=== PATIENT | female | born 1995 | race Caucasian/White ===

== ENCOUNTER → 2018-02-14 | Outpatient (CLI) | payer OTHER ==
[~2018-02-14] MED LIST: "\\\"ANTIBIOTIC\\\""; Augmentin 875-1 EACH PO; CEFD300 PO; CIPR500 PO; CODACEE120 PO; FLUT.05NI; HYDACE5 PO; MAGCIT300 PO; Naprosyn500 MG PO; ONDA4ODT MM; PROM25 PO
== END | disposition home or self-care (01) ==
LOC: LAB SHORT 10:43 → LAB EV 10:43
DX: N39.0 Urinary tract infection, site not specified (principal)
CPT/HCPCS: 87086

== ENCOUNTER → 2018-12-25 | Outpatient (CLI) | payer OTHER ==
[2018-12-29 15:06] LABS: HPV 16 Negative (Negative); HPV 18 Negative (Negative); HPV OTHER HR TYPES Negative (Negative)
== END | disposition home or self-care (01) ==
LOC: LAB 15:38 → LAB SHORT 15:38
PROVIDERS: Obstetrics & Gynecology
DX: Z01.419 Encounter for gynecological examination (general) (routine) without abnormal findings (principal)
CPT/HCPCS: 87624; G0123

== ENCOUNTER → 2019-01-20 | Outpatient (CLI) | payer OTHER ==
[2019-01-21 10:32] LABS: Candida species (DNA Probe) Negative (NEGATIVE); G. vaginalis (DNA Probe) Negative (NEGATIVE); T. vaginalis (DNA Probe) Negative (NEGATIVE)
== END | disposition home or self-care (01) ==
LOC: LAB 16:44 → LAB SHORT 16:44
PROVIDERS: Obstetrics & Gynecology
DX: A59.01 Trichomonal vulvovaginitis (principal)
CPT/HCPCS: 87480; 87510; 87660

== ENCOUNTER → 2022-07-16 | Outpatient (CLI) | payer OTHER ==
[~2022-07-16] MED LIST changes: +ALMACONE SUSPE355 ML PO; +FAMO20 PO; +LEVFLO500 PO; +SERT100 PO; +TRAZ50 PO
== END | disposition home or self-care (01) ==
LOC: LAB SHORT 17:03 → LAB 17:03
PROVIDERS: Obstetrics & Gynecology
DX: Z12.4 Encounter for screening for malignant neoplasm of cervix (principal)
CPT/HCPCS: G0123

== ENCOUNTER 2023-05-01 07:08 | Inpatient (IN) | payer OTHER ==
[2023-05-01] VITALS (39 sets, daily range): BP systolic 82–162; BP diastolic 36–90
[~2023-05-01] VITALS: Ht 170.2 cm; Wt 103.0 kg
[2023-05-01 07:57] LABS: BASOPHILS ABSOLUTE AUTO 0.04 K/mm3 (0.00-0.23); BASOPHILS PERCENT AUTO 0 % (0-2); EOSINOPHILS ABSOLUTE AUTO 0.16 K/mm3 (0.00-0.68); EOSINOPHILS PERCENT AUTO 1 % (0-6); Hematocrit 36.9 % (33.0-51.0); Hemoglobin 11.9 g/dL (11.5-16.0); IMMATURE GRAN ABSOLUTE AUTO 0.14 K/mm3 (0.00-0.10); IMMATURE GRAN PERCENT AUTO 1 % (0-1); LYMPHOCYTES ABSOLUTE AUTO 2.31 K/mm3 (0.84-5.20); LYMPHOCYTES PERCENT AUTO 18 % (21-46); MONOCYTES ABSOLUTE AUTO 0.64 K/mm3 (0.16-1.47); MONOCYTES PERCENT AUTO 5 % (4-13); Mean Corpuscular HGB 25.1 pg (26.0-34.0); Mean Corpuscular HGB Conc 32.2 g/dL (31.5-36.5); Mean Corpuscular Volume 78 fL (80-100); Mean Platelet Volume 10.8 fL (9.1-12.4); NEUTROPHILS ABSOLUTE AUTO 9.44 K/mm3 (1.96-9.15); NEUTROPHILS PERCENT AUTO 74 % (41-73); Platelet Count 259 K/mm3 (150-400); RDW Coefficient Variation 17.3 % (11.7-14.2); RDW Standard Deviation 48.7 fL (35.1-46.3); Red Blood Cell Count 4.74 M/mm3 (3.80-5.20); White Blood Cell Count 12.73 K/mm3 (4.00-11.30)
[2023-05-02] VITALS (13 sets, daily range): BP systolic 117–140; BP diastolic 57–83
[2023-05-02 06:28] LABS: BASOPHILS ABSOLUTE AUTO 0.03 K/mm3 (0.00-0.23); BASOPHILS PERCENT AUTO 0 % (0-2); EOSINOPHILS ABSOLUTE AUTO 0.08 K/mm3 (0.00-0.68); EOSINOPHILS PERCENT AUTO 1 % (0-6); Hematocrit 35.4 % (33.0-51.0); Hemoglobin 11.4 g/dL (11.5-16.0); IMMATURE GRAN ABSOLUTE AUTO 0.11 K/mm3 (0.00-0.10); IMMATURE GRAN PERCENT AUTO 1 % (0-1); LYMPHOCYTES ABSOLUTE AUTO 2.04 K/mm3 (0.84-5.20); LYMPHOCYTES PERCENT AUTO 12 % (21-46); MONOCYTES ABSOLUTE AUTO 0.88 K/mm3 (0.16-1.47); MONOCYTES PERCENT AUTO 5 % (4-13); Mean Corpuscular HGB 25.1 pg (26.0-34.0); Mean Corpuscular HGB Conc 32.2 g/dL (31.5-36.5); Mean Corpuscular Volume 78 fL (80-100); Mean Platelet Volume 10.7 fL (9.1-12.4); NEUTROPHILS ABSOLUTE AUTO 14.45 K/mm3 (1.96-9.15); NEUTROPHILS PERCENT AUTO 82 % (41-73); Platelet Count 250 K/mm3 (150-400); RDW Coefficient Variation 17.4 % (11.7-14.2); Red Blood Cell Count 4.55 M/mm3 (3.80-5.20); White Blood Cell Count 17.59 K/mm3 (4.00-11.30)
--- NOTE | 2023-05-02 19:18 | NUR ---
DISCHARGE INSTRUCTIONS, WRITTEN AND VERBAL, GIVEN TO PT AND S.O. ANSWERED ALL QUESTIONS AND CONCERNS.
== END 2023-05-02 23:19 | disposition home or self-care (01) | DRG 807 ==
LOC: OBS 07:08 → BC 07:09 → OBS 07:18 → BC 07:19
PROVIDERS: ADMIT Obstetrics & Gynecology
PROC: 10E0XZZ Delivery of Products of Conception, External Approach (ICD-10-PCS; principal; 2023-05-01)
PROC: 0HQ9XZZ Repair Perineum Skin, External Approach (ICD-10-PCS; 2023-05-01)
PROC: 00HU33Z Insertion of Infusion Device into Spinal Canal, Percutaneous Approach (ICD-10-PCS; 2023-05-01)
PROC: 3E0R3BZ Introduction of Anesthetic Agent into Spinal Canal, Percutaneous Approach (ICD-10-PCS; 2023-05-01)
DX: O99.344 Other mental disorders complicating childbirth (principal); Z37.0 Single live birth; F41.9 Anxiety disorder, unspecified; F32.A Depression, unspecified; O70.0 First degree perineal laceration during delivery; Z3A.39 39 weeks gestation of pregnancy; Z87.891 Personal history of nicotine dependence; Z98.890 Other specified postprocedural states; Z79.899 Other long term (current) drug therapy; Z67.40 Type O blood, Rh positive
CPT/HCPCS: 36415; 51702; 85025; 86850; 86900; 86901; 86923; A9270; J1885; J2210; J2405; J2590; J3010; J7120

== ENCOUNTER 2023-05-17 07:50 | Emergency (ER) | payer OTHER ==
[~2023-05-17] VITALS: Ht 170.2 cm; Wt 94.3 kg
[2023-05-17] MEDS ORDERED: HYDR1TAB94 PO (08:59)
[2023-05-17 09:08] VITALS: BP 133/86
== END 2023-05-17 09:10 | disposition home or self-care (01) ==
LOC: ER 07:50
DX: R07.89 Other chest pain (principal); F17.210 Nicotine dependence, cigarettes, uncomplicated
CPT/HCPCS: 71046; 99283-25; A9270

== ENCOUNTER 2023-07-22 03:54 | Emergency (ER) | payer OTHER ==
[~2023-07-22] VITALS: Ht 162.6 cm; Wt 72.6 kg
[~2023-07-22 03:54] MED LIST changes: +HYDR1TAB94 PO
[2023-07-22 04:29] LABS: BASOPHILS ABSOLUTE AUTO 0.04 K/mm3 (0.00-0.23); BASOPHILS PERCENT AUTO 0 % (0-2); EOSINOPHILS ABSOLUTE AUTO 0.29 K/mm3 (0.00-0.68); EOSINOPHILS PERCENT AUTO 3 % (0-6); Hematocrit 41.3 % (33.0-51.0); Hemoglobin 13.4 g/dL (11.5-16.0); IMMATURE GRAN ABSOLUTE AUTO 0.05 K/mm3 (0.00-0.10); IMMATURE GRAN PERCENT AUTO 1 % (0-1); LYMPHOCYTES ABSOLUTE AUTO 3.75 K/mm3 (0.84-5.20); LYMPHOCYTES PERCENT AUTO 35 % (21-46); MONOCYTES ABSOLUTE AUTO 0.53 K/mm3 (0.16-1.47); MONOCYTES PERCENT AUTO 5 % (4-13); Mean Corpuscular HGB 26.7 pg (26.0-34.0); Mean Corpuscular HGB Conc 32.4 g/dL (31.5-36.5); Mean Corpuscular Volume 82 fL (80-100); Mean Platelet Volume 10.2 fL (9.1-12.4); NEUTROPHILS ABSOLUTE AUTO 5.97 K/mm3 (1.96-9.15); NEUTROPHILS PERCENT AUTO 56 % (41-73); Platelet Count 317 K/mm3 (150-400); RDW Coefficient Variation 15.3 % (11.7-14.2); Red Blood Cell Count 5.02 M/mm3 (3.80-5.20); White Blood Cell Count 10.63 K/mm3 (4.00-11.30)
[2023-07-22 04:38] LABS: Source, Urine Clean Catch
[2023-07-22 04:42] LABS: Bilirubin, Urine Neg (Neg); Blood, Urine 5+ (Neg); Glucose Qualitative, Urine Neg (Neg); Ketones, Urine 1+ (Neg); Leukocyte Esterase, Urine 1+ (Neg); Nitrite, Urine Neg (Neg); Protein, Urine 2+ (Neg); Specific Gravity, Urine 1.025 (1.003-1.022); Urobilinogen, Urine NORM (Normal)
[2023-07-22 04:48] LABS: Albumin, Blood 3.6 g/dL (3.4-5.0); Albumin/Globulin Ratio 0.9 (0.8-1.8); Bilirubin, Total 0.2 mg/dL (0.1-1.0); Bun/Creatinine Ratio 15.6 (12.0-20.0); Calcium, Blood 8.6 mg/dL (8.5-10.1); Creatinine, Blood 0.64 mg/dL (0.40-1.00); Globulin, Blood 3.8 g/dL (2.2-4.0); Potassium, Blood 3.6 mmol/L (3.5-5.5); Total Protein, Blood 7.4 g/dL (6.4-8.2)
[2023-07-22 04:49] LABS: Appearance, Urine Hazy (Clear); Bacteria Mod /hpf; Color, Urine Yellow (P-Yellow); Mucus Mod (0-Heavy); Red Blood Cells, Urine 0-2 /hpf (0-2); Squamous Epithelial Cells Few /hpf (Few)
[2023-07-22 04:50] LABS: Amorphous Mod (0-Heavy)
[2023-07-22] MEDS ORDERED: ONDA4ODT MM (06:21)
[2023-07-22 06:30] VITALS: BP 130/67
== END 2023-07-22 06:49 | disposition home or self-care (01) ==
LOC: ER 03:54
PROVIDERS: Student in an Organized Health Care Education/Training Program
DX: K80.70 Calculus of gallbladder and bile duct without cholecystitis without obstruction (principal); F17.210 Nicotine dependence, cigarettes, uncomplicated; Z79.899 Other long term (current) drug therapy
CPT/HCPCS: 76705; 80053; 81001; 81025; 83690; 84484; 85025; 87086; 96361; 96374; 99284-25; J1885; J7030

== ENCOUNTER 2023-09-10 06:10 | Day surgery (SDC) | payer OTHER ==
[2023-09-10] VITALS (13 sets, daily range): BP systolic 130–146; BP diastolic 64–92
[~2023-09-10] VITALS: Ht 170.2 cm; Wt 94.9 kg
--- NOTE | 2023-09-10 07:09 | NUR ---
Ambulatory in Day Surgery History, Chart, Medications and Allergies reviewed before start of procedure. Pre-Op teaching done. Pt verbalizes understanding. Patient States Post-Procedure ride home has been arranged.
== END 2023-09-10 10:15 | disposition home or self-care (01) ==
LOC: ORD 06:10 → ORSCMMR 06:10 → ORD 06:14 → ORSCMMR 10:15 → ORD 10:15
PROVIDERS: Surgery
PROC: 0FT44ZZ Resection of Gallbladder, Percutaneous Endoscopic Approach (ICD-10-PCS; principal; 2023-09-10 07:30)
DX: K80.10 Calculus of gallbladder with chronic cholecystitis without obstruction (principal); F32.A Depression, unspecified; F17.210 Nicotine dependence, cigarettes, uncomplicated; Z79.899 Other long term (current) drug therapy
CPT/HCPCS: 88304; A9270; J0694; J1100; J2250; J2405; J2704; J3010; J7120

== ENCOUNTER 2024-02-03 10:25 | Emergency (ER) | payer OTHER ==
[~2024-02-03] VITALS: Ht 170.2 cm; Wt 95.2 kg
[2024-02-03 11:05] VITALS: BP 138/90
[2024-02-03] MEDS ORDERED: ZOLOFT50 MG PO (11:41)
[2024-02-03] MEDS ORDERED: HYDHCL25 PO (11:42)
[2024-02-03] MEDS ORDERED: Acetaminophen 500 MG Tab PO ONE (11:55)
[2024-02-03] MEDS ORDERED: Ketorolac Tromethamine 30mg Vial IM ONE (11:55)
== END 2024-02-03 13:01 | disposition home or self-care (01) ==
LOC: ER 10:25
DX: S83.91XA Sprain of unspecified site of right knee, initial encounter (principal); F17.210 Nicotine dependence, cigarettes, uncomplicated; Z79.899 Other long term (current) drug therapy; V86.96XA Unspecified occupant of dirt bike or motor/cross bike injured in nontraffic accident, initial encounter
CPT/HCPCS: 73562-RT; 96372; 99283-25; A9270; J1885

== ENCOUNTER 2025-01-05 06:21 | Emergency (ER) | payer OTHER ==
[~2025-01-05] VITALS: Ht 170.2 cm; Wt 90.7 kg
[~2025-01-05 06:21] MED LIST changes: +HYDHCL25 PO; +ZOLOFT50 MG PO
[2025-01-05] MEDS ORDERED: Ondansetron HCl 2 MG / ML 2ML Vial IV ONE (06:35)
[2025-01-05] MEDS ORDERED: NS 1,000 ML IV SCH (06:35)
[2025-01-05] MEDS ORDERED: Morphine Sulfate 4 MG/1 ML Injection IV ONE (06:35)
[2025-01-05 06:54] LABS: BASOPHILS ABSOLUTE AUTO 0.02 K/mm3 (0.00-0.23); BASOPHILS PERCENT AUTO 0 % (0-2); EOSINOPHILS ABSOLUTE AUTO 0.29 K/mm3 (0.00-0.68); EOSINOPHILS PERCENT AUTO 3 % (0-6); Hematocrit 43.6 % (33.0-51.0); Hemoglobin 15.1 g/dL (11.5-16.0); IMMATURE GRAN ABSOLUTE AUTO 0.03 K/mm3 (0.00-0.10); IMMATURE GRAN PERCENT AUTO 0 % (0-1); LYMPHOCYTES ABSOLUTE AUTO 3.19 K/mm3 (0.84-5.20); LYMPHOCYTES PERCENT AUTO 34 % (21-46); MONOCYTES ABSOLUTE AUTO 0.51 K/mm3 (0.16-1.47); MONOCYTES PERCENT AUTO 5 % (4-13); Mean Corpuscular HGB 29.5 pg (26.0-34.0); Mean Corpuscular HGB Conc 34.6 g/dL (31.5-36.5); Mean Corpuscular Volume 85 fL (80-100); Mean Platelet Volume 10.7 fL (9.1-12.4); NEUTROPHILS ABSOLUTE AUTO 5.37 K/mm3 (1.96-9.15); NEUTROPHILS PERCENT AUTO 57 % (41-73); Platelet Count 325 K/mm3 (150-400); RDW Coefficient Variation 12.9 % (11.7-14.2); RDW Standard Deviation 39.8 fL (35.1-46.3); Red Blood Cell Count 5.12 M/mm3 (3.80-5.20); White Blood Cell Count 9.41 K/mm3 (4.00-11.30)
[2025-01-05 07:10] LABS: Albumin, Blood 3.7 g/dL (3.4-5.0); Bilirubin, Total 0.6 mg/dL (0.1-1.0); Bun/Creatinine Ratio 13.8 (12.0-20.0); Calcium, Blood 8.9 mg/dL (8.5-10.1); Creatinine, Blood 0.58 mg/dL (0.40-1.00); Globulin, Blood 3.6 g/dL (2.2-4.0); Magnesium, Blood 1.7 mg/dL (1.6-2.4); Potassium, Blood 3.1 mmol/L (3.5-5.5); Total Protein, Blood 7.3 g/dL (6.4-8.2)
[2025-01-05] MEDS ORDERED: Famotidine 10 MG/ML 2ML Vial IV ONE (07:20)
[2025-01-05] MEDS ORDERED: Metoclopramide HCl 5MG / ML 2ML Vial IV ONE (07:20)
[2025-01-05] MEDS ORDERED: DiphenhydrAMINE HCl 50 MG/ML 1ML Vial IV ONE ×2 (07:20→07:55)
[2025-01-05] MEDS ORDERED: Potassium Chloride 20 MEQ TabCR PO ONE (07:25)
[2025-01-05] MEDS ORDERED: Magnesium Oxide 400 MG Tab PO ONE (07:25)
[2025-01-05] MEDS ORDERED: Haloperidol Lactate Inj. 5 MG/ML Injection IV ONE (07:30)
[2025-01-05 07:47] LABS: Source, Urine Clean Catch
[2025-01-05 07:53] LABS: Appearance, Urine Clear (Clear); Bilirubin, Urine Neg (Neg); Blood, Urine Neg (Neg); Color, Urine Yellow (P-Yellow); Glucose Qualitative, Urine Neg (Neg); Ketones, Urine Neg (Neg); Leukocyte Esterase, Urine 1+ (Neg); Nitrite, Urine Neg (Neg); Protein, Urine 2+ (Neg); Urobilinogen, Urine NORM (Normal)
[2025-01-05 08:00] VITALS: BP 138/90
[2025-01-05 08:02] LABS: Mucus Heavy (0-Heavy)
[2025-01-05 08:03] LABS: Bacteria Many /hpf; Calcium Oxalate Crystals Many /hpf; Red Blood Cells, Urine 0-2 /hpf (0-2); Squamous Epithelial Cells Many /hpf (Few)
[2025-01-05] MEDS ORDERED: ONDA4 PO (08:11)
[2025-01-05] MEDS ORDERED: POTA10T PO (08:11)
[2025-01-05] MEDS ORDERED: ACET500 PO (08:11)
== END 2025-01-05 08:28 | disposition home or self-care (01) ==
LOC: ER 06:21
PROVIDERS: Emergency Medicine
DX: R11.15 Cyclical vomiting syndrome unrelated to migraine (principal); E87.6 Hypokalemia; F17.210 Nicotine dependence, cigarettes, uncomplicated; Z79.899 Other long term (current) drug therapy
CPT/HCPCS: 80053; 81001; 81025; 83690; 83735; 84703; 85025; 93005; 93010; 96361; 96374; 96375; 99284-25; A9270; J1200; J1630; J2270; J2405; J7030

== ENCOUNTER → 2025-07-05 | Outpatient (CLI) | payer OTHER ==
[~2025-07-05] MED LIST changes: +ACET500 PO; +ONDA4 PO; +POTA10T PO
== END | disposition home or self-care (01) ==
LOC: LAB SHORT 18:48 → LAB 18:48
DX: R30.0 Dysuria (principal)
CPT/HCPCS: 87077; 87086; 87186

== ENCOUNTER → 2025-07-15 | Outpatient (CLI) | payer OTHER | LOC: LAB SHORT 19:15 → LAB 19:15 | DX: M54.50 Low back pain, unspecified (principal) | CPT/HCPCS: 87086 ==

== ENCOUNTER 2025-08-09 09:06 | Inpatient (IN) | payer OTHER ==
[2025-08-09] VITALS (10 sets, daily range): BP systolic 110–133; BP diastolic 60–86
[~2025-08-09] VITALS: Ht 167.6 cm; Wt 78.0 kg
[2025-08-09] MEDS ORDERED: Ondansetron HCl 2 MG / ML 2ML Vial IV ONE (10:00)
[2025-08-09] MEDS ORDERED: HYDROmorphone HCl/Pf 1MG SYR IV ONE ×3 (10:00→20:00)
[2025-08-09] MEDS ORDERED: TRAZ150T57 PO (10:11)
[2025-08-09] MEDS ORDERED: SERT50 PO (10:11)
[2025-08-09 10:16] LABS: BASOPHILS ABSOLUTE AUTO 0.05 K/mm3 (0.00-0.23); BASOPHILS PERCENT AUTO 0 % (0-2); EOSINOPHILS ABSOLUTE AUTO 0.07 K/mm3 (0.00-0.68); EOSINOPHILS PERCENT AUTO 1 % (0-6); Hematocrit 42.0 % (33.0-51.0); Hemoglobin 14.0 g/dL (11.5-16.0); IMMATURE GRAN ABSOLUTE AUTO 0.05 K/mm3 (0.00-0.10); IMMATURE GRAN PERCENT AUTO 0 % (0-1); LYMPHOCYTES ABSOLUTE AUTO 1.50 K/mm3 (0.84-5.20); LYMPHOCYTES PERCENT AUTO 11 % (21-46); MONOCYTES ABSOLUTE AUTO 0.26 K/mm3 (0.16-1.47); MONOCYTES PERCENT AUTO 2 % (4-13); Mean Corpuscular HGB Conc 33.3 g/dL (31.5-36.5); Mean Corpuscular Volume 88 fL (80-100); NEUTROPHILS ABSOLUTE AUTO 12.27 K/mm3 (1.96-9.15); NEUTROPHILS PERCENT AUTO 86 % (41-73); NRBC ABSOLUTE 0.00 K/mm3 (0.00-0.02); NRBC Auto 0.0 /100 WBC (0.0-0.2); Platelet Count 278 K/mm3 (150-400); RDW Coefficient Variation 12.9 % (11.7-14.2); RDW Standard Deviation 42.3 fL (35.1-46.3)
[2025-08-09 10:36] LABS: Alanine Aminotransfer (ALT/SGP 18.0 U/L (12-78); Albumin, Blood 4.1 g/dL (3.4-5.0); Albumin/Globulin Ratio 1.1 (0.8-1.8); Anion Gap 9.0 mmol/L (3-11); Aspartate Aminotrans (AST/SGOT 12.0 U/L (12-37); Bilirubin, Total 0.9 mg/dL (0.1-1.0); Blood Urea Nitrogen 9.0 mg/dL (8-24); CO2, Blood 23.0 mmol/L (21-32); Calcium, Blood 9.1 mg/dL (8.5-10.1); Chloride, Blood 109.0 mmol/L (98-108); Creatinine, Blood 0.62 mg/dL (0.40-1.00); Globulin, Blood 3.7 g/dL (2.2-4.0); Glucose, Blood 112.0 mg/dL (70-99); Potassium, Blood 3.2 mmol/L (3.5-5.5); Sodium, Blood 138.0 mmol/L (136-145); Total Protein, Blood 7.8 g/dL (6.4-8.2)
[2025-08-09] MEDS ORDERED: Ketorolac Tromethamine 15mg Vial IV ONE (11:55)
[2025-08-09 12:01] LABS: Source, Urine Clean Catch
[2025-08-09 12:06] LABS: Bilirubin, Urine Neg (Neg); Color, Urine Yellow (P-Yellow); Glucose Qualitative, Urine Neg (Neg); Ketones, Urine 1+ (Neg); Leukocyte Esterase, Urine 3+ (Neg); Protein, Urine 2+ (Neg); Specific Gravity, Urine 1.015 (1.003-1.022); Urobilinogen, Urine NORM (Normal)
[2025-08-09 12:25] LABS: White Blood Cells, Urine 50-100 /hpf (0-5)
[2025-08-09] MEDS ORDERED: CefTRIAXone Sodium 1,000 MG in NS 100 ML IV ONE (12:30)
[2025-08-09] MEDS ORDERED: HYDROmorphone HCl/Pf 1MG SYR IV PRN ×3 (13:45→21:45)
[2025-08-09] MEDS ORDERED: FLU VACC TS2025-26(6MOS UP)/PF 45 MCG/0.5 ML SYRINGE IM SCH (13:45)
[2025-08-09] MEDS ORDERED: Polyethylene Glycol 3350 17 gm PO PRN (13:45)
[2025-08-09] MEDS ORDERED: Ondansetron HCl 2 MG / ML 2ML Vial IV PRN ×2 (13:45→21:45)
[2025-08-09] MEDS ORDERED: Potassium Chl 20MEQ/Water100ML 100 ML IV STA (13:53)
[2025-08-09] MEDS ORDERED: Ketorolac Tromethamine 15mg Vial IV PRN (13:55)
[2025-08-09] MEDS ORDERED: NS 250 ML IV PRN (14:40)
--- NOTE | 2025-08-09 16:59 | NUR ---
SHIFT SUMMARY PT AOX4, COOPERATIVE, ABLE TO MAKE NEEDS KNOWN. PT IS SBA IN ROOM FOR LINE MANAGEMENT. NPO LÓPEZ IN PREP FOR PROCEDURE TOMORROW. RUNNING K CURRENLTY, WILL BE RUNNING LR WHEN K IS DONE. TOLERATING MEDICATIONS. ON ROOM AIR. NO OTHER COMPLAINTS BESIDES PAIN, MEDICATING PER EMAR. BED IN LOWEST POSITION, CALL LIGHT WITHIN REACH.
[2025-08-09] MEDS ORDERED: Midazolam HCl 1MG / ML 2ML Vial ONE (21:40)
[2025-08-09] MEDS ORDERED: FentaNYL Citrate 50 MCG/ML 2 ML Injection ONE (21:40)
[2025-08-09] MEDS ORDERED: Dexamethasone Sod Phos 10 MG/ML 1ML VIAL ONE (21:41)
[2025-08-09] MEDS ORDERED: Ondansetron HCl 2 MG / ML 2ML Vial ONE (21:41)
[2025-08-09] MEDS ORDERED: FentaNYL Citrate 50 MCG/ML 2 ML Injection IV PRN ×2 (21:50)
[2025-08-09] MEDS ORDERED: Albuterol 2.5 MG/3 ML VIAL INH PRN (21:50)
[2025-08-09] MEDS ORDERED: ePHEDrine Sulfate 50 MG/ML 1ML Injection IV PRN (21:50)
[2025-08-09] MEDS ORDERED: HydrALAZINE HCl 20 MG / ML 1ML Vial IV PRN (21:50)
[2025-08-09] MEDS ORDERED: Metoclopramide HCl 5MG / ML 2ML Vial ONE (22:19)
[2025-08-09] MEDS ORDERED: Sugammadex Sodium 200 MG/2ML SDV (100 MG/ML) ONE ×2 (22:40→22:54)
--- NOTE | 2025-08-09 22:54 | NUR ---
08/09/25 2254 Liliana Daigle ANCEF 2 GRAMS GIV[address] IV BY DR. IRWIN AT 2218 PRE OP
[2025-08-10] VITALS (12 sets, daily range): BP systolic 114–127; BP diastolic 65–81
[2025-08-10 04:43] LABS: Hematocrit 36.4 % (33.0-51.0); Hemoglobin 12.5 g/dL (11.5-16.0); Mean Corpuscular HGB Conc 34.3 g/dL (31.5-36.5); Mean Corpuscular Volume 88 fL (80-100); NRBC ABSOLUTE 0.00 K/mm3 (0.00-0.02); NRBC Auto 0.0 /100 WBC (0.0-0.2); Platelet Count 235 K/mm3 (150-400); RDW Coefficient Variation 12.9 % (11.7-14.2); RDW Standard Deviation 41.7 fL (35.1-46.3)
[2025-08-10 05:06] LABS: Albumin, Blood 3.2 g/dL (3.4-5.0); Anion Gap 9 mmol/L (3-11); Blood Urea Nitrogen 8 mg/dL (8-24); CO2, Blood 22 mmol/L (21-32); Calcium, Blood 8.5 mg/dL (8.5-10.1); Chloride, Blood 108 mmol/L (98-108); Creatinine, Blood 0.57 mg/dL (0.40-1.00); Glucose, Blood 123 mg/dL (70-99); Magnesium, Blood 1.9 mg/dL (1.6-2.4); Phosphorus, Blood 2.0 mg/dL (2.5-4.9); Potassium, Blood 3.5 mmol/L (3.5-5.5); Sodium, Blood 135 mmol/L (136-145)
[2025-08-10] MEDS ORDERED: Potassium Phosphate Dibasic 30 MM in Dextrose 5% 500 ML IV ONE (05:55)
[2025-08-10] MEDS ORDERED: CefTRIAXone Sodium 1,000 MG in NS 100 ML IV SCH (13:00)
--- NOTE | 2025-08-10 18:25 | NUR ---
SHIFT SUMMARY PATIENT ALERT AND INTERACTIVE. PATIENT INDEPENDENT IN THE ROOM. PATIENT CONTINUES TO HAVE PAIN, PAIN IMPROVED SOME WITH ORAL AGENTS. PATIENT CONTINUES TO HAVE DARK URINE. PATIENT ENCOURAGED TO DRINK LOTS OF FLUIDS. PATIENT ALSO HAS HIGH ANXIETY RELATED TO PAIN AND DISCOMFORT. S.O. AT BEDSIDE.
[2025-08-11] MEDS ORDERED: Diazepam 5 MG / ML 2ML SYR IV ONE (02:20)
--- NOTE | 2025-08-11 02:20 | NUR ---
PRIMARY NURSE TO BREAK, ASKED THAT I CALL PHYSICIAN FOR NEW PAIN MANAGEMENT ORDER. CALLED DR BRANCH AT 0215 AND GOT ORDER FOR VALIUM 2.5 MG IV X 1 ORDER PUT IN BY THIS RN AND WILL UPDATE PRIMARY RN UPON HIS RETURN.
[2025-08-11 05:29] VITALS: BP 115/84
[2025-08-11 07:33] VITALS: BP 115/85
[2025-08-11 15:34] VITALS: BP 132/82
--- NOTE | 2025-08-11 17:38 | NUR ---
SHIFT SUMMARY PATIENT ALERT AND INTERACTIVE. PATIEN AMBULATED X1 IN [place] TODAY. PATIENT CONTINUES TO HAVE R FLANK/ABD PAIN. CONTINUE TO MEDICATE FREQUENTLY FOR PAIN. URINE BLOOD TINGED WITH SEDIMENT. S.O. CONTINUES TO BE AT BEDSIDE. PATIENT TOLERATING FLUIDS. CONTINUES TO VERBALIZE CONCERNS ABOUT GOING HOME WITH CURRENT PAIN ISSUES. DR SANTANA NOTIFIED OF CONTINUED ISSUES WITH PAIN AND VOIDING. NEW ORDERS PLACED.
[2025-08-11 19:29] VITALS: BP 135/99
[2025-08-12 02:59] VITALS: BP 113/66
[2025-08-12 07:22] VITALS: BP 128/83
[2025-08-12 11:01] VITALS: BP 135/95
[2025-08-12] MEDS ORDERED: ACET325 PO (11:35)
[2025-08-12] MEDS ORDERED: OXYB5 PO (11:36)
[2025-08-12] MEDS ORDERED: DIAZ5 PO (11:36)
[2025-08-12] MEDS ORDERED: OXYC5 PO (11:37)
[2025-08-12] MEDS ORDERED: Cephalexin500 M1 PO (11:38)
[2025-08-12] MEDS ORDERED: TAMS.4ER PO (11:38)
[2025-08-12] MEDS ORDERED: PHENA200 PO (11:38)
[2025-08-12] MEDS ORDERED: NAPR500 PO (11:39)
--- NOTE | 2025-08-12 12:14 | NUR ---
PT DISCHARGED THE PT VERBALIZED UNDERSTANDING OF THE DC INSTRUCTIONS, THE PT WAS GIVEN HARD COPY PRESCRIPTINS FOR VALIUM AND OXYCODONE. THE PT WAS TRANSFERD VIA WHEELCHAIR ACCOMPANIED BY HER SO/
--- NOTE | 2025-08-12 12:18 | NUR ---
DISCHARGE NOTE PT A&OX4. PT ADMITTED DUE TO HYDRONEPHROSIS DUE TO OBSTRUCTION OF URETER. PT REPORTS NO SOB NO NAUSEA NO CHEST PAIN, PT REPORTS PAIN AT R KIDNEY, PAIN MANAGED WITH HEATING PAD AND PER EMAR. THIS AM UROLOGY ROUNDED ON PT, ENCOURAGED PO PAIN MANAGEMENT. PT REPORTED PAIN AND PO PAIN MEDS. NO STONE NOTED. VSS. BREAK RN REPORTED "PT LEFT WITH BELONGINGS, LEFT WITH HARDSCRIPTS X2, WENT OVER INSTRUCTIONS, MEDS FAXED, IV D/C." PT ESCORTED TO PT ENTERANCE PER BREAK RN
== END 2025-08-12 12:20 | disposition home or self-care (01) | DRG 661 ==
LOC: ER 09:06 → MEDS 13:40
PROVIDERS: Physician Assistant; Urology; ADMIT Internal Medicine
PROC: BT1D1ZZ Fluoroscopy of Right Kidney, Ureter and Bladder using Low Osmolar Contrast (ICD-10-PCS; 2025-08-09)
PROC: 3E03329 Introduction of Other Anti-infective into Peripheral Vein, Percutaneous Approach (ICD-10-PCS; 2025-08-09)
PROC: 0T768DZ Dilation of Right Ureter with Intraluminal Device, Via Natural or Artificial Opening Endoscopic (ICD-10-PCS; principal; 2025-08-09 21:00)
DX: N13.6 Pyonephrosis (principal); F17.210 Nicotine dependence, cigarettes, uncomplicated; F32.A Depression, unspecified; N32.89 Other specified disorders of bladder; Z79.899 Other long term (current) drug therapy; Z90.49 Acquired absence of other specified parts of digestive tract
CPT/HCPCS: 36415; 74177; 80053; 80069; 81001; 83605; 83690; 83735; 84703; 85025; 85027; 87040; 87077; 87086; 87186; 94760; 96365-59; 96375; 96376; 99285-25; A9270; C1758; C1769; C2617; J0696; J1100; J1171; J1885; J2250; J2405; J2704; J2765; J3010; J3360; J3480; J7060; J7120; Q9967